=== PATIENT | male | born 1950 | race Two or more races ===

== ENCOUNTER → 2021-08-11 | Outpatient (CLI) | payer OTHER ==
[2021-08-11 09:23] LABS: Urine WBC None Seen /hpf (0 - 3)
[2021-08-11 09:33] LABS: Basophils # (auto) 0 10 ^3/uL (0-0.2); Basophils % (auto) 0.8 % (0.0-2.0); Eosinophils # (auto) 0.7 10 ^3/uL (0-0.8); Eosinophils % (auto) 13.1 % (0.0-7.0); Hematocrit 44.5 % (41.0-53.0); Hemoglobin 15.3 g/dL (13.5-17.5); Lymphocytes # (auto) 0.7 10 ^3/uL (0.4-5.4); Lymphocytes % (auto) 14.7 % (10.0-50.0); Mean Corpuscular Hgb Conc. 34.3 g/dL (32.0-36.0); Mean Corpuscular Volume 87.4 fL (80.0-100.0); Monocytes # (auto) 0.5 10 ^3/uL (0-1.3); Monocytes % (auto) 10.1 % (0.0-12.0); Neutrophils # (auto) 3.1 10 ^3/uL (1.6-8.6); Neutrophils % (auto) 61.3 % (37.0-80.0); Nucleated Red Blood Cells % 0.8 %; Red Blood Cells 5.08 10^6/uL (4.5-5.90); Red Cell Distribution Width 13.4 % (11.8-14.3); White Blood Cell 5.1 10^3/uL (4.4-10.8)
[2021-08-11 09:41] LABS: Urine Bacteria NONE SEEN /hpf (None Seen); Urine Blood Negative /uL (Negative); Urine Specific Gravity 1.013 (1.001-1.035)
[2021-08-11 09:58] LABS: Calcium 9.3 mg/dL (8.5-10.1); Potassium 4.1 mmol/L (3.5-5.1)
[2021-08-11 10:36] LABS: Albumin 4.1 g/dL (3.4-5.0); BUN/Creatinine Ratio 13.4; Bilirubin, Total 0.6 mg/dL (0.2-1.0)
[2021-08-11 14:39] LABS: Prostate Specific Antigen 4.83 ng/mL (0.0-4.0)
[2021-08-11 16:43] LABS: Carcinoembryonic Antigen < 0.50 ng/mL (<5.0 OR =)
== END | disposition home or self-care (01) ==
LOC: LAB 08:46
PROVIDERS: ATTEND Internal Medicine
DX: Z00.00 Encounter for general adult medical examination without abnormal findings (principal); Z12.11 Encounter for screening for malignant neoplasm of colon; K40.90 Unilateral inguinal hernia, without obstruction or gangrene, not specified as recurrent
CPT/HCPCS: 36415; 80053; 80061; 81001; 82378; 83036; 84153; 84154; 85025

== ENCOUNTER → 2021-09-25 | Outpatient (CLI) | payer OTHER ==
[~2021-09-25] MED LIST: ALBUTEROL SULF 2.5 MG/0.5ML(0.5%) NEB SOLN ONE
== END | disposition home or self-care (01) ==
LOC: RT 10:23
PROVIDERS: ATTEND Internal Medicine Pulmonary Disease
DX: Z01.818 Encounter for other preprocedural examination (principal); R06.02 Shortness of breath; R91.8 Other nonspecific abnormal finding of lung field
CPT/HCPCS: 94060; 94727; 94729

== ENCOUNTER 2021-10-07 07:25 | Inpatient (IN) | payer OTHER ==
[2021-10-06 15:15] LABS: Basophils # (auto) 0 10 ^3/uL (0-0.2); Basophils % (auto) 0.5 % (0.0-2.0); Eosinophils # (auto) 0.7 10 ^3/uL (0-0.8); Eosinophils % (auto) 13.2 % (0.0-7.0); Hematocrit 45.9 % (41.0-53.0); Lymphocytes # (auto) 0.9 10 ^3/uL (0.4-5.4); Lymphocytes % (auto) 16.2 % (10.0-50.0); Mean Corpuscular Hemoglobin 28.6 pg (28.0-32.0); Mean Corpuscular Hgb Conc. 32.7 g/dL (32.0-36.0); Mean Corpuscular Volume 87.6 fL (80.0-100.0); Monocytes # (auto) 0.4 10 ^3/uL (0-1.3); Monocytes % (auto) 6.9 % (0.0-12.0); Neutrophils # (auto) 3.6 10 ^3/uL (1.6-8.6); Neutrophils % (auto) 63.2 % (37.0-80.0); Nucleated Red Blood Cells % 0.7 %; Red Blood Cells 5.24 10^6/uL (4.5-5.90); Red Cell Distribution Width 13.1 % (11.8-14.3); White Blood Cell 5.6 10^3/uL (4.4-10.8)
[2021-10-06 15:20] LABS: Urine Bacteria NONE SEEN /hpf (None Seen); Urine Blood Negative /uL (Negative); Urine Specific Gravity 1.014 (1.001-1.035); Urine WBC <1 /hpf (0 - 3)
[2021-10-06 15:23] LABS: INR 0.95 (0.9-1.15); Partial Thromboplastin Time 27.9 sec (24.6-33.4)
[2021-10-06 15:26] LABS: Albumin 4.4 g/dL (3.4-5.0); Calcium 8.9 mg/dL (8.5-10.1); Potassium 4.2 mmol/L (3.5-5.1)
[2021-10-06 15:29] LABS: Bilirubin, Total 0.4 mg/dL (0.2-1.0)
[2021-10-07] VITALS (12 sets, daily range): BP systolic 117–136; BP diastolic 73–104
[~2021-10-07] VITALS: Ht 172.7 cm; Wt 82.4 kg
[2021-10-07] MEDS ORDERED: ceFAZolin 1GM/50ML 100 ML IV ONE (09:07)
[2021-10-07] MEDS ORDERED: ceFAZolin 1GM VL ONE (11:05)
[2021-10-07] MEDS ORDERED: fentaNYL CITRATE 100 MCG/2 ML VL ONE (11:11)
[2021-10-07] MEDS ORDERED: MIDAZOLAM HCL 2MG/2ML 2ml VIAL (1mg/ml) ONE (11:11)
[2021-10-07] MEDS ORDERED: PROPOFOL 10 MG/ML 20 ML IV ONE (11:40)
[2021-10-07] MEDS ORDERED: KETOROLAC TROMETH 60MG/2ML VIAL ONE (11:40)
[2021-10-07] MEDS ORDERED: ePHEDrine SULFATE 50 MG/ML AMP ONE (11:40)
[2021-10-07] MEDS ORDERED: ROCURONIUM 10MG/ML 10ML VIAL IV ONE (11:40)
[2021-10-07] MEDS ORDERED: ONDANSETRON HCL 4 MG/2 ML VIAL ONE (11:40)
[2021-10-07] MEDS ORDERED: LIDOCAINE 2% (LOCAL ANESTH.) PF 5ml SDV ONE (11:40)
[2021-10-07] MEDS ORDERED: METOCLOPRAMIDE HCL 5MG/ml INJ 2ml VIAL ONE (11:40)
[2021-10-07] MEDS ORDERED: SODIUM CHLORIDE LOCK 10 ML ONE (11:40)
[2021-10-07] MEDS ORDERED: LIDOCAINE HCL 1%(LOCAL ANESTH.) INJ 50ML MDV IJ ONE (12:18)
[2021-10-07] MEDS ORDERED: BUPIVACAINE 0.25% INJ 50ML VIAL IJ ONE (12:19)
[2021-10-07] MEDS ORDERED: HYDROmorphone HCL 2 MG/ML VL/or syr IV PRN ×2 (13:15→14:45)
[2021-10-07] MEDS ORDERED: D5W/SOD CHL 0.45%/KCL 20MEQ 1,000 ML IV SCH (13:15)
[2021-10-07] MEDS ORDERED: MEPERIDINE HCL (25 MG/ML) 1ML VIAL ONE (13:19)
[2021-10-07] MEDS ORDERED: EPINEPHrine HCL 1 MG/1 ML AMP ONE (13:44)
[2021-10-07] MEDS ORDERED: BUPIVACAINE 0.25% INJ 50ML VIAL ONE (13:44)
[2021-10-07] MEDS ORDERED: ceFAZolin 2 GM in D5W 5% 100 ML IV SCH ×2 (14:00→22:00)
[2021-10-07] MEDS ORDERED: ONDANSETRON HCL 4 MG/2 ML VIAL IV PRN (14:45)
[2021-10-07] MEDS ORDERED: PANTOPRAZOLE 40 MG/10 ML VIAL INJ IV ONE ×2 (14:45→19:30)
[2021-10-07] MEDS: ceFAZolin 2 GM in D5W 5% 100 ML IV SCH (21:01)
[2021-10-07] MEDS: SODIUM CHLORIDE 0.9% 1,000 ML IV SCH (23:00)
[2021-10-08] VITALS (17 sets, daily range): BP systolic 120–153; BP diastolic 72–94
[2021-10-08] MEDS: ceFAZolin 2 GM in D5W 5% 100 ML IV SCH ×3 (02:30→17:57)
[2021-10-08 05:00] LABS: Basophils # (auto) 0 10 ^3/uL (0-0.2); Basophils % (auto) 0.1 % (0.0-2.0); Eosinophils # (auto) 0 10 ^3/uL (0-0.8); Eosinophils % (auto) 0.1 % (0.0-7.0); Hematocrit 45.3 % (41.0-53.0); Lymphocytes # (auto) 0.7 10 ^3/uL (0.4-5.4); Lymphocytes % (auto) 8.1 % (10.0-50.0); Mean Corpuscular Hgb Conc. 33.1 g/dL (32.0-36.0); Mean Corpuscular Volume 87.7 fL (80.0-100.0); Monocytes # (auto) 0.9 10 ^3/uL (0-1.3); Monocytes % (auto) 10.3 % (0.0-12.0); Neutrophils # (auto) 7.3 10 ^3/uL (1.6-8.6); Neutrophils % (auto) 81.4 % (37.0-80.0); Red Blood Cells 5.16 10^6/uL (4.5-5.90); Red Cell Distribution Width 13.1 % (11.8-14.3)
[2021-10-08 05:24] LABS: BUN/Creatinine Ratio 14.6; Calcium 8.4 mg/dL (8.5-10.1); Potassium 4.3 mmol/L (3.5-5.1)
[2021-10-08] MEDS: PANTOPRAZOLE 40 MG/10 ML VIAL INJ IV SCH (09:34)
[2021-10-08] MEDS ORDERED: THROAT LOZENGES(CEPASTAT) MT PRN (12:00)
[2021-10-08] MEDS: SODIUM CHLORIDE 0.9% 1,000 ML IV SCH ×2 (17:31→22:16)
[2021-10-09] MEDS: ceFAZolin 2 GM in D5W 5% 100 ML IV SCH ×3 (01:12→17:57)
[2021-10-09 05:00] VITALS: BP 104/74
[2021-10-09 08:59] VITALS: BP 120/80
[2021-10-09] MEDS: PANTOPRAZOLE 40 MG/10 ML VIAL INJ IV SCH (10:39)
[2021-10-09] MEDS ORDERED: HYDROmorphone HCL 2 MG/ML VL/or syr IV PRN (12:45)
[2021-10-09] MEDS ORDERED: HYDROcodone-ACET 5/325MG TAB PO PRN (12:45)
[2021-10-09 13:00] VITALS: BP 125/79
[2021-10-09] MEDS: SODIUM CHLORIDE 0.9% 1,000 ML IV SCH (13:10)
[2021-10-09 22:00] VITALS: BP 148/88
[2021-10-10] MEDS: ceFAZolin 2 GM in D5W 5% 100 ML IV SCH ×2 (02:33→08:43)
[2021-10-10] MEDS: SODIUM CHLORIDE 0.9% 1,000 ML IV SCH (04:01)
[2021-10-10 05:00] VITALS: BP 124/74
[2021-10-10] MEDS: PANTOPRAZOLE 40 MG/10 ML VIAL INJ IV SCH (08:41)
[2021-10-10 08:59] VITALS: BP 139/84
== END 2021-10-10 14:56 | disposition home or self-care (01) | DRG 352 ==
LOC: SUR 07:25 → DOU IN ICU 18:35 → TELE-WESTW 10-08 16:50 → WEST WING 10-09 20:18
PROVIDERS: ADMIT Surgery; ATTEND Internal Medicine
PROC: 0YQ50ZZ Repair Right Inguinal Region, Open Approach (ICD-10-PCS; principal; 2021-10-07 11:12)
DX: K40.90 Unilateral inguinal hernia, without obstruction or gangrene, not specified as recurrent (principal); I10 Essential (primary) hypertension; Z20.822 Contact with and (suspected) exposure to COVID-19
CPT/HCPCS: 36415; 80048; 80053; 81001; 85025; 85610; 85730; 86850; 86900; 86901; 87081; C1781; C9113; G0378; J0171; J0690; J1885; J2001; J2250; J2405; J2704; J3490; J7060